=== PATIENT | male | born 1950 | race Caucasian/White ===

== ENCOUNTER → 2018-12-15 | Outpatient (CLI) | payer MEDICARE, BC ==
--- NOTE | 2018-12-15 15:20 | CR ---
CLINICAL HISTORY: 68-year-old 195 pound male with "aortic heart murmur" and possible Sjogren's syndrome. INTERPRETATION: Evidence of old trauma and chronic hypertrophic arthritic changes several levels mid thoracic vertebra. Normal cardiac silhouette, i.e., size and configuration. No cephalization of vascular flow, new signs of alveolar edema or dependent pleural fluid accumulation when compared directly to July 2007 exam. No new lung mass, hilar lymphadenopathy or focal lobar pneumonia. No atelectasis/collapse. No pneumothorax. CONCLUSION: No acute new cardiopulmonary abnormality since chest radiograph July 2007. (Arthritis thoracic spine closed (
== END ==
LOC: DL.US 12:34
PROVIDERS: ATTEND Internal Medicine Rheumatology
DX: R01.1 Cardiac murmur, unspecified (principal); M35.9 Systemic involvement of connective tissue, unspecified; E04.2 Nontoxic multinodular goiter; R91.8 Other nonspecific abnormal finding of lung field; I77.810 Thoracic aortic ectasia; J98.4 Other disorders of lung; I27.20 Pulmonary hypertension, unspecified; I08.1 Rheumatic disorders of both mitral and tricuspid valves
CPT/HCPCS: 71046; 71250; 93306

== ENCOUNTER 2021-07-14 05:30 | Day surgery (SDC) | payer MEDICARE, BC ==
[~2021-07-14 05:30] MED LIST: Dextrose 5%-0.45% NaCl 1,000 ML IV SCH; Midazolam 1 MG/ML 2 ML SDV ONE; Sodium Chloride 0.9% 10 ML Syringe FLUSH SCH; fentaNYL 100 MCG/2 ML SDV ONE
[2021-07-14] MEDS ORDERED: Midazolam 1 MG/ML 2 ML SDV IV ONE ×7 (05:31→06:51)
[2021-07-14] MEDS ORDERED: fentaNYL 100 MCG/2 ML SDV IV ONE ×4 (05:31→06:54)
[2021-07-14 10:11] VITALS: BP 144/64; PULSE 51
== END 2021-07-14 09:15 | disposition home or self-care (01) ==
LOC: DL.ENDO 05:30
PROVIDERS: ATTEND Internal Medicine Gastroenterology
DX: Z12.11 Encounter for screening for malignant neoplasm of colon (principal); D12.3 Benign neoplasm of transverse colon; D12.2 Benign neoplasm of ascending colon; K64.8 Other hemorrhoids; K57.30 Diverticulosis of large intestine without perforation or abscess without bleeding; I10 Essential (primary) hypertension; H91.90 Unspecified hearing loss, unspecified ear; E04.1 Nontoxic single thyroid nodule; K44.9 Diaphragmatic hernia without obstruction or gangrene; I48.91 Unspecified atrial fibrillation; Z83.71 Family history of colonic polyps; Z98.890 Other specified postprocedural states
CPT/HCPCS: 45385; J2250; J3010; J7042; 88305